=== PATIENT | male | born 1960 | race Caucasian/White ===

== ENCOUNTER → 2021-03-21 | Emergency (ER) | payer MEDICAID ==
[~2021-03-21] VITALS: Ht 177.8 cm; Wt 97.7 kg
[~2021-03-21] MED LIST: ASPIRIN CHEWABLE 81 MG TABLET. PO ONE; IV NORMAL SALINE 1,000ML 1,000 ML IV SCH
[2021-03-21 18:15] VITALS: BP 142/98
--- NOTE | 2021-03-21 18:19 | EKG ---
[address] [address] Test Date: 2021-03-21 Test Time: 18:06:44 Pat Name: DAYANARA FUENTES Department: Room: Gender: M Studio Assistant: ANDRÉS : 1960 Requested By: CHRIS GUERRERO Order Number: [id number] Reading MD: Measurements Intervals [place] Rate: 89 P: 62 LA: 198 QRS: 227 QRSD: 76 T: 38 QT: 316 QTc: 385 Interpretive Statements SINUS RHYTHM ABNORMAL RIGHT SUPERIOR AXIS DEVIATION LOW LIMB LEAD VOLTAGE QRS(T) CONTOUR ABNORMALITY CONSISTENT WITH ANTEROSEPTAL INFARCT PROBABLY OLD CONSISTENT WITH INFERIOR INFARCT PROBABLY OLD ABNORMAL ECG RI6.02 No previous ECG available for comparison
[2021-03-21 18:47] LABS: BASO # 0.1 x10^3/uL (0.0-0.2); BASO % 1 % (0-3); EOS # 0.3 x10^3/uL (0.0-0.7); EOS % 4 % (0-3); HEMATOCRIT 48.2 % (39.0-53.0); HEMOGLOBIN 16.5 g/dL (13.0-17.5); LYMPH # 2.6 x10^3/uL (1.0-4.8); LYMPH % 35 % (24-48); MEAN CORPUSCULAR HEMOGLOBIN 31 pg (25-35); MEAN CORPUSCULAR HGB CONC 34 g/dL (31-37); MEAN CORPUSCULAR VOLUME 92 fL (79-100); MONO # 0.5 x10^3/uL (0.0-1.1); MONO % 7 % (0-9); NEUT # 3.9 x10^3uL (1.8-7.7); NEUT % 53 % (31-73); PLATELET COUNT 179 x10^3/uL (140-400); RED BLOOD COUNT 5.26 x10^6/uL (4.30-5.70); RED CELL DISTRIBUTION WIDTH 13.3 % (11.5-14.5); WHITE BLOOD COUNT 7.4 x10^3/uL (4.0-11.0)
--- NOTE | 2021-03-21 18:48 | RAD ---
AP chest. HISTORY: Chest pain AP view was taken of the chest. There is a density on the right in the lung bases which could be a no dule or nipple shadow there may be a similar density on the left. There is linear scarring or atelect asis along the left heart border. Follow-up film with a nipple marker could be of benefit. Heart is normal in size. There is no pleural effusion. IMPRESSION: 1. Nodule versus nipple in the lung bases follow-up film recommended. Electronically signed by: Randy Moreno MD (03/21/2021 6:45 PM) [facility]
[2021-03-21 18:54] LABS: CALCIUM 8.6 mg/dL (8.5-10.1); CREATININE 1.6 mg/dL (0.7-1.3); GFR 44.6; POTASSIUM 4.6 mmol/L (3.5-5.1)
--- NOTE | 2021-03-21 19:02 | PHYS DOC ---
Past History Additional Past Medical Histor: chronic neck/back pain (CHRIS GUERRERO APRN) Past Surgical History: Cholecystectomy Additional Past Surgical Histo: umbilical hernia, R inguinal hernia (CHRIS GUERRERO APRN) Alcohol Use: None (CHRIS GUERRERO APRN) General Adult EDM: Chief Complaint: CHEST PAIN HPI: HPI: Patient is a 60-year-old male presents with midsternal chest pain since yesterday morning. Patient states "I woke up, got out of bed and my chest started hurting". Patient also reports shortness of breath. Patient states that pain is worse with raising his arms up in the air and movement. Patient reports pain has been constant. Denies nausea/vomiting/diarrhea. Denies taking anything for pain. Patient denies recent illness or cough. Patient got second vaccine dose on . Patient is a 1 pack-a-day smoker, has a history of diabetes and chronic pain. (CHRIS GUERRERO APRN) Review of Systems: Review of Systems: Constitutional: Denies fever or chills Eyes: Denies change in visual acuity HENT: Denies nasal congestion or sore throat Respiratory: Denies cough. Reports shortness of breath Cardiovascular: Reports shortness of breath GI: Denies abdominal pain, nausea, vomiting, bloody stools or diarrhea : Denies dysuria Musculoskeletal: Denies back pain or joint pain Integument: Denies rash Neurologic: Denies headache, focal weakness or sensory changes Endocrine: Denies polyuria or polydipsia Lymphatic: Denies swollen glands Psychiatric: Denies depression or anxiety (CHRIS GUERRERO APRN) Current Medications: Current Meds: Current Medications Medications (Trade) Dose Ordered Sig/Kadie Start Time Stop Time Status Last Admin Dose Admin Aspirin (Aspirin Chewable) 324 mg 1X ONCE 03/21/21 18:15 03/21/21 18:29 DC 03/21/21 18:48 324 MG Sodium Chloride 1,000 ml @ 1,000 mls/hr Q1H 03/21/21 18:15 03/21/21 19:14 03/21/21 18:49 1,000 MLS/HR (CHRIS GUERRERO APRN) Allergies: Allergies: Allergies Coded Allergies Type Severity Reaction Last Updated Verified Penicillins Allergy Unknown 03/21/21 Yes (CHRIS GUERRERO APRN) Physical Exam: PE: Constitutional: Well developed, well nourished, no acute distress, non-toxic appearance. [] HENT: Normocephalic, atraumatic, bilateral external ears normal, oropharynx moist, no oral exudates, nose normal. [] Eyes: PERRLA, EOMI, conjunctiva normal, no discharge. [] Neck: Normal range of motion, no tenderness, supple, no stridor. [] Cardiovascular:Heart rate regular rhythm, no murmur [] Lungs & Thorax: Bilateral breath sounds clear to auscultation [] Abdomen: Bowel sounds normal, soft, no tenderness, no masses, no pulsatile masses. [] Skin: Warm, dry, no erythema, no rash. [] Back: No tenderness, no CVA tenderness. [] Extremities: No tenderness, no cyanosis, no clubbing, ROM intact, no edema. [] Neurologic: Alert and oriented X 3, normal motor function, normal sensory function, no focal deficits noted. [] Psychologic: Affect normal, judgement normal, mood normal. [] (CHRIS GUERRERO APRN) Current Patient Data: Labs: Laboratory Tests Test 03/21/21 18:32 White Blood Count 7.4 x10^3/uL (4.0-11.0) Red Blood Count 5.26 x10^6/uL (4.30-5.70) Hemoglobin 16.5 g/dL (13.0-17.5) Hematocrit 48.2 % (39.0-53.0) Mean Corpuscular Volume 92 fL (79-100) Mean Corpuscular Hemoglobin 31 pg (25-35) Mean Corpuscular Hemoglobin Concent 34 g/dL (31-37) Red Cell Distribution Width 13.3 % (11.5-14.5) Platelet Count 179 x10^3/uL (140-400) Neutrophils (%) (Auto) 53 % (31-73) Lymphocytes (%) (Auto) 35 % (24-48) Monocytes (%) (Auto) 7 % (0-9) Eosinophils (%) (Auto) 4 % (0-3) H Basophils (%) (Auto) 1 % (0-3) Neutrophils # (Auto) 3.9 x10^3uL (1.8-7.7) Lymphocytes # (Auto) 2.6 x10^3/uL (1.0-4.8) Monocytes # (Auto) 0.5 x10^3/uL (0.0-1.1) Eosinophils # (Auto) 0.3 x10^3/uL (0.0-0.7) Basophils # (Auto) 0.1 x10^3/uL (0.0-0.2) Vital Signs: Vital Signs Date Time Temp Pulse Resp B/P (MAP) Pulse Ox O2 Delivery O2 Flow Rate FiO2 03/21/21 18:15 98.4 97 20 142/98 98 Room Air (CHRIS GUERRERO APRN) EKG: EKG: [] (CHRIS GUERRERO APRN) Radiology/Procedures: Radiology/Procedures: []AP chest. HISTORY: Chest pain AP view was taken of the chest. There is a density on the right in the lung bases which could be a nodule or nipple shadow there may be a similar density on the left. There is linear scarring or atelectasis along the left heart border. Follow-up film with a nipple marker could be of benefit. Heart is normal in size. There is no pleural effusion. IMPRESSION: 1. Nodule versus nipple in the lung bases follow-up film recommended. Electronically signed by: Randy Moreno MD (03/21/2021 6:45 PM) [facility] (CHRIS GUERRERO APRN) Heart Score: C/O Chest Pain: Yes HEART Score for Chest Pain: HEART Score for Chest Pain Response (Comments) Value History Moderately Suspicious 1 ECG Normal 0 Age >45 - < 65 1 Risk Factors 1 or 2 Risk Factors 1 Troponin < Normal Limit 0 Total 3 Risk Factors: Risk Factors: DM, Current or recent (<one month) smoker, HTN, HLP, family history of CAD, obesity. Risk Scores: Score 0 - 3: 2.5% MACE over next 6 weeks - Discharge Home Score 4 - 6: 20.3% MACE over next 6 weeks - Admit for Clinical Observation Score 7 - 10: 72.7% MACE over next 6 weeks - Early Invasive Strategies (CHRIS GUERRERO APRN) Course & Med Decision Making: Course & Med Decision Making Pertinent Labs and Imaging studies reviewed. (See chart for details) [] 60-year-old male presents with constant, midsternal chest pain, since yesterday morning. Patient also reports slight shortness of breath. Patient does report pain is worse with movement. Denies recent illness. EKG shows sinus rhythm. Heart score of 3. Patient given 324 of aspirin. Chest x-ray is unremarkable. All labs unremarkable. Troponin is negative. Pain has been constant since yesterday morning, no indication for second trop onin needed. UDS positive for opiates and marijuana. Patient most likely has pleuritic chest pain. Pain is worse with raising his arms in the air and movement. Patient was also able to reproduce pain when he pushed on his chest. Advised patient that he will need to follow-up with his PCP in the morning for further management. Patient was given strict return precautions. Patient states that he understands discharge instructions and agrees with plan. (CHRIS GUERRERO APRN) Nadjaon Disclaimer: Keila Disclaimer: This electronic medical record was generated, in whole or in part, using a voice recognition dictation system. (CHRIS GUERRERO APRN) Departure Departure: Impression: Primary Impression: Chest pain Qualified Codes: R07.89 - Other chest pain Disposition: HOME / SELF CARE / HOMELESS Condition: STABLE Referrals: AIXA BROWN MD (PCP) Patient Instructions: Chest Pain (Nonspecific), [id number] Additional Instructions: You were seen in the emergency room for chest pain since yesterday morning. All of your labs were unremarkable. Your chest x-ray was negative for any acute abnormalities. Please call your PCP and make a follow-up appointment for tomorrow for further testing and management. Return to the emergency room if you have worsening chest pain, shortness of breath or anything that is concerning. EMERGENCY DEPARTMENT GENERAL DISCHARGE INSTRUCTIONS Thank you for coming to [facility] (ED) today and trusting us with you care. We trust that you had a positivie experience in our Emergency Department. If you wish to speak to the department management, you may call the director at [phone]. YOUR FOLLOW UP INSTRUCTIONS ARE FOLLOWS: 1. Do you have a private Doctor? If you do not have a private doctor, please a sk for a resource list of physicians or clinics that may be able to assist you with follow up care. 2. The Emergency Physician has interpreted your x-rays. The X-Ray specialist will also review them. If there is a change in the findings, you will be notified in 48 hours when at all possible. 3. A lab test or culture has been done, your results will be reviewed and you will be notified if you need a change in treatment. ADDITIONAL INSTRUCTIONS AND INFORMATION: 1. Your care today has been supervised by a physician who is specially trained in emergency care. Many problems require more than one evaluation for a complete diagnosis and treatment. We recommend that you schedule your follow up appointment as recommended to ensure complete treatment of you illness or injury. If you are unable to obtain follow up care and continue to have a problem, or if your condition worsens, we recommend that you return to the ED. 2. We are not able to safely determine your condition over the phone nor are we able to give sound medical advice over the phone. For these safety reasons, if you call for medical advice we will ask you to come to the ED for further evaluation. 3. If you have any questions regarding these discharge instructions please call the ED at [phone]. SAFETY INFORMATION: In the interest of safety, wellness, and injury prevention; we encourage you to wear your sealbelt, if you smoke; quite smoking, and we encourage family to use a protective helmet for bicycling and other sporting events that present an increased risk for head injury. IF YOUR SYMPTOMS WORSEN OR NEW SYMPTOMS DEVELOP, OR YOU HAVE CONCERNS ABOUT YOUR CONDITION; OR IF YOUR CONDITION WORSENS WHILE YOU ARE WAITING FOR YOUR FOLLOW UP APPOINTMENT; EITHER CONTACT YOUR PRIMARY CARE DOCTOR, THE PHYSICIAN WHOSE NAME AND NUMBER YOU WERE GIVEN, OR RETURN TO THE ED IMMEDIATELY. Attending Signature Attending Signature I have participated in the care of this patient and I have reviewed and agree with all pertinent clinical information above including history, exam, and recommendations. (DULCE SOLORIO MD) CHRIS GUERRERO APRN Mar 21, 2021 19:01 DULCE SOLORIO MD Mar 24, 2021 06:59
[2021-03-21 19:07] LABS: ALBUMIN 3.6 g/dL (3.4-5.0); ALBUMIN/GLOBULIN RATIO 1.2 (1.0-1.7); MAGNESIUM 1.7 mg/dL (1.8-2.4); TOTAL BILIRUBIN 0.5 mg/dL (0.2-1.0); TOTAL PROTEIN 6.5 g/dL (6.4-8.2)
[2021-03-21 20:18] LABS: BARBITURATES NEG (NEG); BENZODIAZEPINES NEG (NEG); CANNABINOIDS POS (NEG); COCAINE NEG (NEG); METHADONE NEG (NEG); OPIATES POS (NEG); PHENCYCLIDINE NEG (NEG)
[2021-03-21 20:21] LABS: AMPHETAMINE/METHAMPHETAMINE NEG (NEG)
--- NOTE | 2021-03-21 20:23 | EKG ---
[address] [address] Test Date: 2021-03-21 Test Time: 19:09:33 Pat Name: DAYANARA FUENTES Department: Room: Gender: M Residential Nurse: MIKY : 1960 Requested By: CHRIS GUERRERO Order Number: [id number] Reading MD: Measurements Intervals [place] Rate: 80 P: 56 HI: 208 QRS: 214 QRSD: 76 T: 31 QT: 338 QTc: 393 Interpretive Statements SINUS RHYTHM LOW LIMB LEAD VOLTAGE QRS(T) CONTOUR ABNORMALITY CONSISTENT WITH ANTEROSEPTAL INFARCT PROBABLY OLD CONSISTENT WITH INFERIOR INFARCT PROBABLY OLD ABNORMAL ECG RI6.02 No previous ECG available for comparison
[2021-03-21 20:45] LABS: CLARITY,URINE CLEAR; COLOR,URINE YELLOW; GLUCOSE,URINE 100 mg/dL (NEG)
[2021-03-21 20:46] LABS: BILIRUBIN,URINE NEG (NEG); NITRITE,URINE NEG (NEG); UROBILINOGEN,URINE 0.2 mg/dL (0.2 mg/dL)
[2021-03-21 20:48] LABS: BACTERIA,URINE FEW /HPF (0-FEW); RBC,URINE 0 /HPF (0-2); SQUAMOUS EPITHELIAL CELL,UR OCC /LPF
[2021-03-21 20:49] LABS: HYALINE CASTS, URINE FEW /HPF
== END | disposition home or self-care (01) ==
LOC: ER 18:01
DX: R07.2 Precordial pain (principal); R06.02 Shortness of breath; F17.200 Nicotine dependence, unspecified, uncomplicated; E11.9 Type 2 diabetes mellitus without complications; G89.29 Other chronic pain; Z88.0 Allergy status to penicillin
CPT/HCPCS: 36415; 71045; 80053; 80307; 81001; 83735; 83880; 84484; 85025; 87086; 93005; 96360; 99285; J7030

== ENCOUNTER 2021-12-09 17:46 | Emergency (ER) | payer MEDICAID ==
[~2021-12-09] VITALS: Ht 177.8 cm; Wt 99.3 kg
[2021-12-09] MEDS ORDERED: ASPIRIN CHEWABLE 81 MG TABLET. PO ONE (18:00)
[2021-12-09] MEDS ORDERED: MORPHINE SULFATE 2 MG/ML DISP.SYRIN. IV ONE (18:00)
[2021-12-09] MEDS ORDERED: IV NORMAL SALINE 1,000ML 1,000 ML IV ONE (18:00)
--- NOTE | 2021-12-09 18:10 | PHYS DOC ---
Past History Additional Past Medical Histor: chronic neck/back pain Past Surgical History: Cholecystectomy Additional Past Surgical Histo: umbilical hernia, R inguinal hernia Alcohol Use: None General Adult EDM: Chief Complaint: CHEST PAIN HPI: HPI: Patient is a 60-year-old male who presents to the emergency department for chest pain. Patient reports that he seeded the yard on Sunday and then started having the chest pain on . He reports right-sided chest pain that radiates down his arm. It is worse with movement, cough and deep inspiration. Patient rates his pain 8 out of 10. No treatment prior to arrival. Patient reports a white productive cough and shortness of breath. Patient is a current smoker and has a history of COPD and diabetes. Patient denies nausea, vomiting, fever. Review of Systems: Review of Systems: Constitutional: See HPI Respiratory: See HPI Cardiovascular: See HPI GI: See HPI Musculoskeletal: See HPI Current Medications: Current Meds: Current Medications Medications (Trade) Dose Ordered Sig/Kadie Start Time Stop Time Status Last Admin Dose Admin Aspirin (Aspirin Chewable) 324 mg 1X ONCE 12/09/21 18:00 12/09/21 18:01 UNV Morphine Sulfate (Morphine 2mg Syringe) 2 mg 1X ONCE 12/09/21 18:00 12/09/21 18:01 UNV Sodium Chloride 1,000 ml @ 1,000 mls/hr 1X ONCE 12/09/21 18:00 12/09/21 18:59 UNV Allergies: Allergies: Allergies Coded Allergies Type Severity Reaction Last Updated Verified Penicillins Allergy Unknown 12/09/21 Yes Physical Exam: PE: Constitutional: Well developed, well nourished, no acute distress, non-toxic appearance. [] HENT: Normocephalic, atraumatic, bilateral external ears normal, oropharynx moist, no oral exudates, nose normal. [] Eyes: PERRLA, EOMI, conjunctiva normal, no discharge. [] Neck: Normal range of motion, no tenderness, supple, no stridor. [] Cardiovascular:Heart rate regular rhythm, no murmur [] Lungs & Thorax: Bilateral breath sounds clear to auscultation [] Abdomen: Bowel sounds normal, soft, no tenderness, no masses, no pulsatile masses. [] Skin: Warm, dry, no erythema, no rash. [] Back: No tenderness, no CVA tenderness. [] Extremities: No tenderness, no cyanosis, no clubbing, ROM intact, no edema. [] Neurologic: Alert and oriented X 3, normal motor function, normal sensory function, no focal deficits noted. [] Psychologic: Affect normal, judgement normal, mood normal. [] Current Patient Data: Labs: Laboratory Tests Test 12/09/21 18:05 12/09/21 18:45 White Blood Count 11.7 x10^3/uL Red Blood Count 5.55 x10^6/uL Hemoglobin 17.0 g/dL Hematocrit 49.9 % Mean Corpuscular Volume 90 fL Mean Corpuscular Hemoglobin 31 pg Mean Corpuscular Hemoglobin Concent 34 g/dL Red Cell Distribution Width 14.3 % Platelet Count 172 x10^3/uL Neutrophils (%) (Auto) 78 % Lymphocytes (%) (Auto) 13 % Monocytes (%) (Auto) 7 % Eosinophils (%) (Auto) 1 % Basophils (%) (Auto) 1 % Neutrophils # (Auto) 9.1 x10^3uL Lymphocytes # (Auto) 1.6 x10^3/uL Monocytes # (Auto) 0.8 x10^3/uL Eosinophils # (Auto) 0.1 x10^3/uL Basophils # (Auto) 0.1 x10^3/uL D-Dimer (Nicole) 4.34 mg/L Sodium Level 134 mmol/L Potassium Level 4.3 mmol/L Chloride Level 100 mmol/L Carbon Dioxide Level 27 mmol/L Anion Gap 7 Blood Urea Nitrogen 18 mg/dL Creatinine 1.6 mg/dL Estimated GFR (Cockcroft-Gault) 44.6 BUN/Creatinine Ratio 11 Glucose Level 191 mg/dL Calcium Level 9.0 mg/dL Total Bilirubin 1.5 mg/dL Aspartate Amino Transf (AST/SGOT) 14 U/L Alanine Aminotransferase (ALT/SGPT) 22 U/L Alkaline Phosphatase 116 U/L Troponin I High Sensitivity 7 ng/L Total Protein 7.0 g/dL Albumin 3.6 g/dL Albumin/Globulin Ratio 1.1 [id number] Natriuretic Peptide 21 pg/mL Current Medications Medications (Trade) Dose Ordered Sig/Kadie Route PRN Reason Start Time Stop Time Status Last Admin Dose Admin Aspirin (Aspirin Chewable) 324 mg 1X ONCE PO 12/09/21 18:00 12/09/21 18:13 DC 12/09/21 18:12 Morphine Sulfate (Morphine 2mg Syringe) 2 mg 1X ONCE IV 12/09/21 18:00 12/09/21 18:13 DC 12/09/21 18:13 Sodium Chloride 1,000 ml @ 1,000 mls/hr 1X ONCE IV 12/09/21 18:00 12/09/21 18:59 DC 12/09/21 18:12 Iohexol (Omnipaque 350 Mg/ml) 100 ml 1X ONCE IV 12/09/21 19:45 12/09/21 19:46 DC 12/09/21 19:47 Albuterol/ Ipratropium (Duoneb) 3 ml 1X ONCE NEB 12/09/21 20:30 12/09/21 20:31 DC 12/09/21 20:28 Methylprednisolone Sodium Succinate (SOLU-Medrol 125MG VIAL) 125 mg 1X ONCE IV 12/09/21 20:30 12/09/21 20:31 DC 12/09/21 20:28 Fentanyl Citrate (Fentanyl 2ml Vial) 50 mcg 1X ONCE IVP 12/09/21 20:30 12/09/21 20:31 DC 12/09/21 20:28 EKG: EKG: EKG performed by ER staff at 1755 shows sinus tachycardia with a rate of 120, QTC of 409, no STEMI read by Dr. Robledo at 1758 [] Radiology/Procedures: Radiology/Procedures: []REASON: OMNI 350,100ML IV. Pleuritic cp, elevated ddimer PROCEDURE: CT ANGIOGRAPHY CHEST CTA CHEST INDICATION: Pleuritic cp, elevated ddimer Comparison: Radiograph 12/09/2021. TECHNIQUE: Following the uneventful administration of intravenous contrast, 185 cc Isovue-370 (bolus repeated as first was nondiagnostic), axial CT sections were obtained through the lungs and upper abdomen. Multiplanar reconstructions and MIP images were obtained. PQRS compliance statement: One or more of the following individualized dose reduction techniques were utilized for this examination: 1. Automated exposure control 2. Adjustment of the mA and/or kV according to patient size 3. Use of iterative reconstruction technique FINDINGS: Pulmonary arteries: Moderate burden pulmonary thromboembolic disease involving lobar and segmental branches of the right upper, middle, and lower lobes. No evidence of right heart strain. Lungs and Airways: Subpleural groundglass opacities involving the right middle lobe and both lower lobes. Additional scattered subsegmental atelectasis. No abnormality of the central airways. Pleura: The pleural spaces are normal. Heart and Mediastinum: The visualized thyroid is normal in size and attenuation. No axillary or supraclavicular lymphadenopathy. No mediastinal, hilar or retrocrural lymphadenopathy. Normal cardiac size. Coronary artery atherosclerotic disease. Normal caliber thoracic aorta. Abdomen: Cholecystectomy.. Bones and Soft Tissues: Degenerative changes of the spine. IMPRESSION: 1. Moderate burden pulmonary thromboembolic involving the right lung as above. No evidence of right heart strain. 2. Groundglass opacities in the right middle lobe and both lower lobes which could represent infection, edema, or infarct. 3. Coronary artery atherosclerotic disease. 4. Centrilobular emphysema. 5. Moderate-sized hiatal hernia PROCEDURE: PORTABLE CHEST 1V Exam: Chest one view INDICATION: Chest pain TECHNIQUE: Frontal view of the chest Comparisons: 03/21/2021 FINDINGS: The cardiomediastinal silhouette and pulmonary vessels are within normal limits. Hazy bibasilar airspace disease. No pleural effusion. IMPRESSION: Findings likely related to mild pulmonary edema with adjacent atelectasis. Electronically signed by: Alonzo Matthews MD (12/09/2021 6:41 PM) [facility] DICTATED AND SIGNED BY: ALONZO MATTHEWS MD DATE: 12/09/211838 CC: AIXA BROWN MD; ZAHIDA BRENNAN APRN ~ Heart Score: C/O Chest Pain: Yes HEART Score for Chest Pain: HEART Score for Chest Pain Response (Comments) Value History Slighlty/Non-Suspicious 0 ECG Nonspecific Repolarizatio 1 Age >45 - < 65 1 Risk Factors 1 or 2 Risk Factors 1 Troponin < Normal Limit 0 Total 3 Risk Factors: Risk Factors: DM, Current or recent (<one month) smoker, HTN, HLP, family history of CAD, obesity. Risk Scores: Score 0 - 3: 2.5% MACE over next 6 weeks - Discharge Home Score 4 - 6: 20.3% MACE over next 6 weeks - Admit for Clinical Observation Score 7 - 10: 72.7% MACE over next 6 weeks - Early Invasive Strategies Course & Med Decision Making: Course & Med Decision Making Pertinent Labs and Imaging studies reviewed. (See chart for details) [] Patient presents to the emergency department for right-sided chest pain that started after seeding his yard but is worse with movement, cough and deep inspiration. Patient is a current smoker and has a history of COPD and is reporting increased sputum production. Work-up in the ER consisted of blood work including troponin and D-dimer, EKG and chest x-ray. Patient's creatinine was elevated at 1.6 which is consistent with his previous lab findings. Negative troponin negative BNP. His D-dimer was elevated at 4.34. Chest x-ray showed pulmonary edema. Because of elevated D-dimer, CT angio of his chest was performed and patient does have a moderate burden pulmonary embolism and groundglass opacities. Patient's PSI score is intermediate. Patient's room air oxygen saturation is 93%. I discussed these findings with patient and the need for admission in which he declined. Patient states "I will come back if I get worse". Patient is to sign out AGAINST MEDICAL ADVICE. I have advised patient on the risks associated with leaving AGAINST MEDICAL ADVICE which includes worsening of condition and . Patients at bedside for conversation. AMA paper signed. Patient is alert and oriented x4 and able to make his own medical decisions. Discussed case with supervising physician and he advised that Patient will be given a dose of Lovenox while in the ER and will be discharged home on Eliquis as well as abx for pneumonia.physician also discussed leaving AGAINST MEDICAL ADVICE with patient and he continues to report that he wants to leave the hospital. Keila Disclaimer: Keila Disclaimer: This electronic medical record was generated, in whole or in part, using a voice recognition dictation system. Departure Departure: Impression: Primary Impression: Pulmonary embolism Qualified Codes: I26.93 - Single subsegmental pulmonary embolism without acute cor pulmonale Additional Impression: Pneumonia Qualified Codes: J18.9 - Pneumonia, unspecified organism Disposition: 01 HOME / SELF CARE / HOMELESS Condition: GOOD Referrals: AIXA BROWN MD (PCP) Patient Instructions: Apixaban oral tablets, Pneumonia, Adult, Pulmonary Embolus Additional Instructions: You are seen in the emergency department today for chest pain and shortness of breath. You were noted to have a blood clot in your lungs. I advised you to stay in the hospital to be admitted for blood thinner for your IV and you signed out AGAINST MEDICAL ADVICE. You are being sent home with a blood thinner to use. Please take 10 mg twice a day for 7 days followed by 5 mg twice a day for 3 months. Avoid grapefruit juice with this medication. I would strongly advise you to follow-up with your primary care provider as soon as possible, please call them tomorrow. You were also noted to have pneumonia which will be treated with an antibiotic. Please start and finish the antibiotic completely. I would advise you to purchase a pulse oximeter monitor your oxygen saturation levels at home. Blood thinner use makes you more susceptible to bleeding, please avoid activities that may place you at higher risk for injuries. If you do injure yourself, you must be seen in the ER. You will need to return to the emergency department if they drop below 90%. Return to the emergency department if you develop chest pain, shortness of breath, decreased oxygen saturations, high fevers refractory to treatment, weakness, confusion, intractable nausea or vomiting, rectal bleeding, vomiting blood, dizziness or you pass out. Scripts Levofloxacin (LEVOFLOXACIN) 750 Mg Tablet 1 TAB PO DAILY for pneumonia for 5 Days, #5 TAB 0 Refills Prov: ZAHIDA BRENNAN APRN 12/09/21 Apixaban (ELIQUIS) 5 Mg Tablet 5 MG PO BID for pulmonary embolism for 90 Days, #180 TAB 0 Refills Prov: ZAHIDA BRENNAN APRN 12/09/21 Apixaban (ELIQUIS) 5 Mg Tablet 10 MG PO BID for pulmonary embolism for 7 Days, #28 TAB 0 Refills Prov: ZAHIDA BRENNAN APRN 12/09/21 ZAHIDA BRENNAN APRN Dec 09, 2021 18:10
[2021-12-09 18:41] LABS: BASO # 0.1 x10^3/uL (0.0-0.2); BASO % 1 % (0-3); EOS # 0.1 x10^3/uL (0.0-0.7); EOS % 1 % (0-3); HEMATOCRIT 49.9 % (39.0-53.0); LYMPH # 1.6 x10^3/uL (1.0-4.8); LYMPH % 13 % (24-48); MEAN CORPUSCULAR HEMOGLOBIN 31 pg (25-35); MEAN CORPUSCULAR HGB CONC 34 g/dL (31-37); MEAN CORPUSCULAR VOLUME 90 fL (79-100); MONO # 0.8 x10^3/uL (0.0-1.1); MONO % 7 % (0-9); NEUT # 9.1 x10^3uL (1.8-7.7); NEUT % 78 % (31-73); PLATELET COUNT 172 x10^3/uL (140-400); RED BLOOD COUNT 5.55 x10^6/uL (4.30-5.70); RED CELL DISTRIBUTION WIDTH 14.3 % (11.5-14.5); WHITE BLOOD COUNT 11.7 x10^3/uL (4.0-11.0)
--- NOTE | 2021-12-09 18:43 | RAD ---
Exam: Chest one view INDICATION: Chest pain TECHNIQUE: Frontal view of the chest Comparisons: 03/21/2021 FINDINGS: The cardiomediastinal silhouette and pulmonary vessels are within normal limits. Hazy bibasilar airspace disease. No pleural effusion. IMPRESSION: Findings likely related to mild pulmonary edema with adjacent atelectasis. Electronically signed by: Alonzo Blood MD (12/09/2021 6:41 PM) [facility]
[2021-12-09 18:48] LABS: CREATININE 1.6 mg/dL (0.7-1.3); GFR 44.6; POTASSIUM 4.3 mmol/L (3.5-5.1)
[2021-12-09 18:54] LABS: ALBUMIN 3.6 g/dL (3.4-5.0); ALBUMIN/GLOBULIN RATIO 1.1 (1.0-1.7); TOTAL BILIRUBIN 1.5 mg/dL (0.2-1.0)
--- NOTE | 2021-12-09 19:03 | EKG ---
[address] [address] Test Date: 2021-12-09 Test Time: 17:55:48 Pat Name: DAYANARA FUENTES Department: Room: Gender: M Material Inspector: : 1960 Requested By: ZAHIDA BRENNAN Order Number: [id number] Reading MD: Carlos Eduardo Melgoza Measurements Intervals [place] Rate: 120 P: 90 TN: 182 QRS: 211 QRSD: 74 T: 21 QT: 286 QTc: 409 Interpretive Statements SINUS TACHYCARDIA ATRIAL PREMATURE COMPLEX(ES) LOW LIMB LEAD VOLTAGE QRS(T) CONTOUR ABNORMALITY CONSISTENT WITH ANTEROSEPTAL INFARCT PROBABLY OLD Electronically Signed On 12-16-2021 14:14:37 CDT by Carlos Eduardo Melgoza
[2021-12-09] MEDS ORDERED: IOHEXOL 350 MG/ML 100 ML VIAL. IV ONE (19:45)
[2021-12-09] MEDS ORDERED: IPRATRPIUM/ALBUTEROL 0.5/2.5MG 3 ML NEBU. NEB ONE (20:30)
[2021-12-09] MEDS ORDERED: methylPREDNISolone SOD SUCC PF 125 MG/2 ML VIAL. IV ONE (20:30)
--- NOTE | 2021-12-09 20:38 | RAD ---
CTA CHEST INDICATION: Pleuritic cp, elevated ddimer Comparison: Radiograph 12/09/2021. TECHNIQUE: Following the uneventful administration of intravenous contrast, 185 cc Isovue-370 (bolus repeated as first was nondiagnostic), axial CT sections were obtained through the lungs and upper abd omen. Multiplanar reconstructions and MIP images were obtained. RS compliance statement: One or more of the following individualized dose reduction techniques were utilized for this examinat ion: 1. Automated exposure control 2. Adjustment of the mA and/or kV according to patient size 3. Use of iterative reconstruction technique FINDINGS: Pulmonary arteries: Moderate burden pulmonary thromboembolic disease involving lobar and segmental br anches of the right upper, middle, and lower lobes. No evidence of right heart strain. Lungs and Airways: Subpleural groundglass opacities involving the right middle lobe and both lower lo bes. Additional scattered subsegmental atelectasis. No abnormality of the central airways. Pleura: The pleural spaces are normal. Heart and Mediastinum: The visualized thyroid is normal in size and attenuation. No axillary or supra clavicular lymphadenopathy. No mediastinal, hilar or retrocrural lymphadenopathy. Normal cardiac size . Coronary artery atherosclerotic disease. Normal caliber thoracic aorta. Abdomen: Cholecystectomy.. Bones and Soft Tissues: Degenerative changes of the spine. IMPRESSION: 1. Moderate burden pulmonary thromboembolic involving the right lung as above. No evidence of right h eart strain. 2. Groundglass opacities in the right middle lobe and both lower lobes which could represent infectio n, edema, or infarct. 3. Coronary artery atherosclerotic disease. 4. Centrilobular emphysema. 5. Moderate-sized hiatal hernia FOR INTERNAL CODING PURPOSES Critical result: Findings discussed with the emergency department at 12/09/2021 8:31 PM. RESULT CODE: (C) Electronically signed by: Rafat Hobson MD (12/09/2021 8:36 PM) [facility]
[2021-12-09 20:42] VITALS: BP 133/55
[2021-12-09] MEDS ORDERED: ENOXAPARIN ** NOTE DOSE ** SYRINGE SQ SCH (21:00)
[2021-12-09] MEDS ORDERED: APIX5TAB3 PO (21:01)
[2021-12-09] MEDS ORDERED: LEVO750T5 PO (21:04)
== END 2021-12-09 21:11 | disposition home or self-care (01) ==
LOC: ER 17:46
DX: I26.93 Single subsegmental thrombotic pulmonary embolism without acute cor pulmonale (principal); J18.9 Pneumonia, unspecified organism; F17.200 Nicotine dependence, unspecified, uncomplicated; J44.9 Chronic obstructive pulmonary disease, unspecified; E11.9 Type 2 diabetes mellitus without complications; Z88.0 Allergy status to penicillin
CPT/HCPCS: 36415; 71045; 71275; 80053; 83880; 84484; 85025; 85379; 93005; 94640; 96361; 96372; 96374; 96375; 99285; J1650; J2270; J2930; J3010; J7030; Q9967

== ENCOUNTER 2021-12-11 08:06 | Emergency (ER) | payer MEDICAID ==
[~2021-12-11] VITALS: Ht 177.8 cm; Wt 99.3 kg
[~2021-12-11 08:06] MED LIST changes: +APIX5TAB3 PO; -ASPIRIN CHEWABLE 81 MG TABLET. PO ONE; -IV NORMAL SALINE 1,000ML 1,000 ML IV SCH; +LEVO750T5 PO
[2021-12-11] MEDS ORDERED: FAMOTIDINE 20 MG TABLET PO ONE (09:15)
[2021-12-11] MEDS ORDERED: IOHEXOL 350 MG/ML 100 ML VIAL. IV ONE (09:15)
[2021-12-11] MEDS ORDERED: LIDO:MAALOX 1:1 20 ML SINGLE DOSE. PO ONE (09:15)
--- NOTE | 2021-12-11 09:17 | PHYS DOC ---
Past History Additional Past Medical Histor: chronic neck/back pain. blood clot in lung Past Surgical History: Cholecystectomy, Other Additional Past Surgical Histo: umbilical hernia, R inguinal hernia Alcohol Use: Sober General Adult EDM: Chief Complaint: SHORTNESS OF BREATH HPI: HPI: Patient is a 60-year-old male coming in for worsening shortness of breath and left-sided chest pain. Patient was seen in this ER 2 days ago and diagnosed with pneumonia and moderate-sized pulmonary embolisms. Patient refused admission at that time but was told to return if symptoms worsen. Patient at that time was complaining of right-sided chest pain, down today is spread to the left. Patient was discharged AMA but prescribed Eliquis and Levaquin. Patient states that he has been taking his Eliquis and Levaquin since yesterday, also had his dose this morning. Also complained of indigestion. Spoke 1.5 packs of cigarette per day Review of Systems: Review of Systems: All other systems within normal limits except for as noted in the HPI Allergies: Allergies: Allergies Coded Allergies Type Severity Reaction Last Updated Verified Penicillins Allergy Unknown 12/09/21 Yes Physical Exam: PE: Constitutional: Well developed, well nourished, no acute distress, non-toxic appearance. [] HENT: Normocephalic, atraumatic, bilateral external ears normal, nose normal. [] Eyes: PERRLA, conjunctiva normal, no discharge. [] Neck: No rigidity, supple, no stridor. [] Cardiovascular: Regular rate and rhythm, brisk cap refill [] Lungs & Thorax: Non labored symmetric respirations, no tachypnea or respiratory distress [] Abdomen: Soft, nondistended. Skin: Warm, dry, no erythema, no rash. [] Back: Unremarkable Extremities: No deformities, range of motion grossly intact, no lower extremity edema [] Neurologic: Alert and oriented X 3, no focal deficits noted. [] Psychologic: Affect normal, judgement normal, mood normal. [] Current Patient Data: Vital Signs: Vital Signs Date Time Temp Pulse Resp B/P (MAP) Pulse Ox O2 Delivery O2 Flow Rate FiO2 12/11/21 08:15 98.4 79 22 149/94 (112) 95 Room Air EKG: EKG: Heart rate 100 bpm, normal sinus rhythm, no STEMI, no change from ECG dated 03-21-21 or 12-09-21 [] Radiology/Procedures: Radiology/Procedures: [address] [address] IMAGING REPORT Signed PATIENT: DAYANARA FUENTES ACCOUNT: [id number] : 1960 LOCATION: ER AGE: 60 SEX: M EXAM STATUS: REG ER ORD. PHYSICIAN: MICHELLE BAEZA MD REASON: chest pain worsening PROCEDURE: CT ANGIOGRAPHY CHEST PQRS Compliance Statement: One or more of the following individualized dose reduction techniques were utilized for this examination: 1. Automated exposure control 2. Adjustment of the mA and/or kV according to patient size 3. Use of iterative reconstruction technique CT CHEST WITH CONTRAST, PULMONARY ANGIOGRAM History: Reason: chest pain worsening Comparison: None. Technique: Helical CT of the chest was performed after the administration of 80 cc of Omnipaque 350 intravenous contrast according to PE protocol. Axial and coronal reconstructions were obtained. 3-D MIP images were constructed to better evaluate the pulmonary arteries. Findings: Pulmonary arteries are adequately opacified. There is pulmonary embolus on the right in the central right upper lobe, right middle lobe, and right lower lobe pulmonary arteries. Thrombus extends out into segmental pulmonary arteries most apparent in the right lower lobe. No pulmonary embolus is identified on the left. There is no convincing evidence of right ventricular strain. There is no thoracic aortic dissection. There are several subcentimeter mediastinal lymph nodes. There is coronary artery disease at the bifurcation of the left main. Cardiac size is normal, no pericardial effusion. There is a moderate sized hiatal hernia. There is no pleural abnormality. Probable retained secretions or mucous are seen in the left mainstem bronchus. There is centrilobular and paraseptal emphysema. There is a small consolidation in the medial and anterior right upper lobe just above the minor fissure. There is a wedge-shaped consolidation and groundglass opacity in the lateral right middle lobe. There is moderate consolidation in the dependent right lower lobe. There is mild atelectasis in the left lower lobe and inferior lingula. The visualized upper abdomen is unremarkable. The thoracic spine alignment is maintained. IMPRESSION: 1. There is pulmonary embolus in all 3 of the right lobar pulmonary arteries extending out into segmental branches. The overall clot burden is moderate. No thrombus is seen in the left lung. There is no obvious evidence of right ventricular strain. 2. There is a wedge-shaped consolidation and groundglass opacities in the lateral right middle lobe suggestive of pulmonary infarct. 3. There is moderate consolidation in the posterior right lower lobe. Finding is probably atelectasis. Pneumonia or pulmonary infarct considered less likely. 4. There is pulmonary emphysema. 5. Moderate sized hiatal hernia. FOR INTERNAL CODING PURPOSES Critical result: Findings discussed with MICHELLE BAEZA MD at 12/11/2021 11:11 AM. RESULT CODE: (C) 1. Electronically signed by: Khalif Suero MD (12/11/2021 11:15 AM) [id number] DICTATED AND SIGNED BY: KHALIF SUERO MD DATE: 12/11/21 1101 CC: MICHELLE BAEZA MD; AIXA BROWN MD ~ [] Heart Score: C/O Chest Pain: Yes HEART Score for Chest Pain: HEART Score for Chest Pain Response (Comments) Value History Moderately Suspicious 1 ECG Nonspecific Repolarizatio 1 Age >45 - < 65 1 Risk Factors >3 Risk Factors or Hx CAD 2 Troponin < Normal Limit 0 Total 5 Risk Factors: Risk Factors: DM, Current or recent (<one month) smoker, HTN, HLP, family history of CAD, obesity. Risk Scores: Score 0 - 3: 2.5% MACE over next 6 weeks - Discharge Home Score 4 - 6: 20.3% MACE over next 6 weeks - Admit for Clinical Observation Score 7 - 10: 72.7% MACE over next 6 weeks - Early Invasive Strategies Course & Med Decision Making: Course & Med Decision Making Pertinent Labs and Imaging studies reviewed. (See chart for details) Start on heparin [facility] due to new lung infarction and moderate PE clot burden. Report given to Dr. Dixon who will accept patient at [facility] [] Keila Disclaimer: Keila Disclaimer: This electronic medical record was generated, in whole or in part, using a voice recognition dictation system. Departure Departure: Impression: Primary Impression: Pneumonia Additional Impression: Embolism, pulmonary with infarction Disposition: 02 [facility]ORT TERM [facility]OSPITAL Condition: STABLE Referrals: AIXA BROWN MD (PCP) MICHELLE BAEZA MD Dec 11, 2021 09:17
--- NOTE | 2021-12-11 09:49 | EKG ---
[address] [address] Test Date: 2021-12-11 Test Time: 08:26:21 Pat Name: DAYANARA FUENTES Department: Room: Gender: M Air Traffic Control Specialist: ANDRÉS : 1960 Requested By: MICHELLE BAEZA Order Number: [id number] Reading MD: Carlos Eduardo Melgoza Measurements Intervals [place] Rate: 100 P: 54 MO: 190 QRS: 191 QRSD: 76 T: 22 QT: 302 QTc: 392 Interpretive Statements SINUS RHYTHM LOW LIMB LEAD VOLTAGE QRS(T) CONTOUR ABNORMALITY CONSISTENT WITH ANTEROSEPTAL INFARCT PROBABLY OLD Electronically Signed On 12-16-2021 14:05:01 CDT by Carlos Eduardo Melgoza
[2021-12-11 10:23] LABS: BASO # 0.1 x10^3/uL (0.0-0.2); BASO % 1 % (0-3); EOS # 0.1 x10^3/uL (0.0-0.7); EOS % 1 % (0-3); HEMATOCRIT 45.4 % (39.0-53.0); HEMOGLOBIN 15.3 g/dL (13.0-17.5); LYMPH # 2.5 x10^3/uL (1.0-4.8); LYMPH % 23 % (24-48); MEAN CORPUSCULAR HEMOGLOBIN 31 pg (25-35); MEAN CORPUSCULAR HGB CONC 34 g/dL (31-37); MEAN CORPUSCULAR VOLUME 91 fL (79-100); MONO # 0.7 x10^3/uL (0.0-1.1); MONO % 6 % (0-9); NEUT # 7.4 x10^3uL (1.8-7.7); NEUT % 68 % (31-73); PLATELET COUNT 164 x10^3/uL (140-400); WHITE BLOOD COUNT 10.8 x10^3/uL (4.0-11.0)
[2021-12-11 10:32] LABS: CALCIUM 8.9 mg/dL (8.5-10.1); CREATININE 1.5 mg/dL (0.7-1.3); GFR 48.1; POTASSIUM 4.3 mmol/L (3.5-5.1)
[2021-12-11] MEDS ORDERED: IV NORMAL SALINE 1,000ML 1,000 ML IV ONE (10:45)
[2021-12-11 10:46] LABS: ALBUMIN 2.9 g/dL (3.4-5.0); ALBUMIN/GLOBULIN RATIO 0.8 (1.0-1.7); MAGNESIUM 1.8 mg/dL (1.8-2.4); TOTAL BILIRUBIN 0.6 mg/dL (0.2-1.0); TOTAL PROTEIN 6.5 g/dL (6.4-8.2)
--- NOTE | 2021-12-11 11:18 | RAD ---
PQRS Compliance Statement: One or more of the following individualized dose reduction techniques were utilized for this examinat ion: 1. Automated exposure control 2. Adjustment of the mA and/or kV according to patient size 3. Use of iterative reconstruction technique CT CHEST WITH CONTRAST, PULMONARY ANGIOGRAM History: Reason: chest pain worsening Comparison: None. Technique: Helical CT of the chest was performed after the administration of 80 cc of Omnipaque 350 intravenous contrast according to PE protocol. Axial and coronal reconstructions were obtained. 3-D MIP images were constructed to better evaluate the pulmonary arteries. Findings: Pulmonary arteries are adequately opacified. There is pulmonary embolus on the right in the central r ight upper lobe, right middle lobe, and right lower lobe pulmonary arteries. Thrombus extends out int o segmental pulmonary arteries most apparent in the right lower lobe. No pulmonary embolus is identif ied on the left. There is no convincing evidence of right ventricular strain. There is no thoracic aortic dissection. There are several subcentimeter mediastinal lymph nodes. Ther e is coronary artery disease at the bifurcation of the left main. Cardiac size is normal, no pericard ial effusion. There is a moderate sized hiatal hernia. There is no pleural abnormality. Probable retained secretions or mucous are seen in the left mainstem bronchus. There is centrilobular and paraseptal emphysema. There is a small consolidation in the med ial and anterior right upper lobe just above the minor fissure. There is a wedge-shaped consolidation and groundglass opacity in the lateral right middle lobe. There is moderate consolidation in the dep endent right lower lobe. There is mild atelectasis in the left lower lobe and inferior lingula. The visualized upper abdomen is unremarkable. The thoracic spine alignment is maintained. IMPRESSION: 1. There is pulmonary embolus in all 3 of the right lobar pulmonary arteries extending out into segm ental branches. The overall clot burden is moderate. No thrombus is seen in the left lung. There is n o obvious evidence of right ventricular strain. 2. There is a wedge-shaped consolidation and groundglass opacities in the lateral right middle lobe suggestive of pulmonary infarct. 3. There is moderate consolidation in the posterior right lower lobe. Finding is probably atelectasi s. Pneumonia or pulmonary infarct considered less likely. 4. There is pulmonary emphysema. 5. Moderate sized hiatal hernia. FOR INTERNAL CODING PURPOSES Critical result: Findings discussed with MICHELLE BAEZA MD at 12/11/2021 11:11 AM. RESULT CODE: (C) 1. Electronically signed by: Khalif Suero MD (12/11/2021 11:15 AM) [id number]
[2021-12-11] MEDS ORDERED: HEPARIN 25,000UTS/250ML PREMIX 250 ML IV PRN (11:45)
[2021-12-11] MEDS ORDERED: HEPARIN for IV BOLUS 10,000 UNIT/10 ML VIAL. IV PRN ×3 (11:45)
[2021-12-11] MEDS ORDERED: HEPARIN for IV BOLUS 10,000 UNIT/10 ML VIAL. IV ONE (11:45)
[2021-12-11 12:17] VITALS: BP 140/89
== END 2021-12-11 13:43 | disposition short-term general hospital (02) ==
LOC: ER 08:06
DX: J18.9 Pneumonia, unspecified organism (principal); I26.99 Other pulmonary embolism without acute cor pulmonale; F17.210 Nicotine dependence, cigarettes, uncomplicated; Z90.49 Acquired absence of other specified parts of digestive tract; Z88.0 Allergy status to penicillin
CPT/HCPCS: 36415; 71275; 80053; 83605; 83735; 83880; 84484; 85025; 85610; 85730; 87040; 93005; 96361; 96374; 99285; J1644; J7030; Q9967